=== PATIENT | female | born 1955 | race African-American/Black ===

== ENCOUNTER → 2018-01-23 | Outpatient (CLI) | payer BC ==
[~2018-01-23] VITALS: Ht 160 cm; Wt 93.3 kg
[~2018-01-23] MED LIST: AMLO10TA2 PO; CHLORHEXIDINE GLUCONATE 2 % 1 PACK (2 CLOTHS) TOPICAL PRN; ECASA81 PO; LACTATED RINGER'S 1000 ML IV PRN; LIDOCAINE HCL 1% PF 5 ML SYRINGE OTHER ONE; LISI-515 PO; METO1TAB9 PO; METOPROLOL TARTRATE 25 MG TAB PO PRN; POVIDONE IODINE 5% (ANTISEPSIS KIT) 4 APPLICATIONS EACH NARE PRN; PROPOFOL 200 MG/20 ML AMP IV ONE; PROT40TA PO; ROSU20 PO; SODIUM CHLORID 0.9% 500 ML IV PRN; VENTAER INH; WARF-22 PO; WARF-23 PO
[2018-01-23 09:29] LABS: INTERNATIONAL NORMALIZED RATIO 1.3 RATIO; PROTHROMBIN TIME - PATIENT 13.4 SEC (9.8-11.6)
--- NOTE | 2018-01-23 11:17 | EKG ---
Date Performed: 01/23/2018 Time Performed: 08:45:38 PTAGE: 62 years EKG: Sinus rhythm MARKED LEFT AXIS DEVIATION MODERATE VOLTAGE CRITERIA FOR LVH, CONSIDER NORMAL VARIANT ABNORMAL ECG NO PREVIOUS TRACING DOCTOR: Farhan Tejada Interpretating Date/Time 01/23/2018 11:12:47
--- NOTE | 2018-01-23 11:50 | PD.PROCEDR ---
GI Procedure PROCEDURE PERFORMED Endoscopic ultrasound INDICATION FOR PROCEDURE Dilated common bile duct PROCEDURE: The procedure, risks and benefits were discussed with Ms. Tejada and informed consent was obtained. Anesthesia sedated her with Diprivan. She was placed in the left lateral decubitus position. Endoscopic ultrasound: The Pentax videoscope was introduced through the oropharynx and advanced to the second portion of the duodenum under direct visualization. FINDINGS: The pancreatic parenchyma appeared to be unremarkable and within normal limits from head to tail The pancreatic duct appeared to be within normal limits The common bile duct appeared to be moderately dilated to about 9 mm no filling defects and no abnormalities noted within the lumen of the bile duct I was able to track it from the ampulla or on up and it was otherwise unremarkable The ampulla was also unremarkable with normal limits No lymphadenopathy was seen And no gallbladder was seen ESTIMATED BLOOD LOSS: None SPECIMENS REMOVED: None COMPLICATIONS: None IMPRESSION: Dilated common bile duct post cholecystectomy PLAN: Follow-up in clinic in 4 weeks CBC with a CMP prior office visit Kumar Armstrong MD Jan 23, 2018 11:50
[2018-01-23 12:04] VITALS: TEMP 97.7
[2018-01-23 12:35] VITALS: BP 128/65; PULSE 62; RESP 16; O2SAT 99
== END ==
LOC: HSDC 08:20
PROVIDERS: ATTEND Internal Medicine Gastroenterology
DX: K83.8 Other specified diseases of biliary tract (principal); R94.31 Abnormal electrocardiogram [ECG] [EKG]
CPT/HCPCS: 43259; 85610; 85730; 93005